=== PATIENT | male | born 1990 | race Caucasian/White ===

== ENCOUNTER 2018-10-18 01:41 | Emergency (ER) | payer OTHER ==
--- NOTE | 2018-10-18 01:49 | ED Physician Documentation ---
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 He says he felt something into left eye when he rubbed his hand over his eyebrow area. He washed out his eye, but still has feeling of FB under the upper lid and eye irritation when he moves his eye around or blinks.) Timing - duration: Hours Timing - details: Abrupt onset, Still present Location: Left Quality / character: Aching Associated symptoms: Tearing, FB sensation. No: Redness, Swelling, Decreased vision Contributing factors: FB Similar symptoms before: Has not had sx before Recently seen: Not recently seen Review of Systems Constitutional: denies: Fever Eyes: reports: Irritation. denies: Loss of vision, Decreased vision, Photophobia, Discharge PD PAST MEDICAL HISTORY - Past Medical History HEENT: None - Present Medications Home Medications: Ambulatory Orders Medication Instructions Recorded Confirmed Sertraline [Zoloft] 1 tab PO DAILY 10/18/18 10/18/18 - Allergies Allergies/Adverse Reactions: Allergies Allergy/AdvReac Type Severity Reaction Status Date / Time Penicillins Allergy Hives Verified 10/18/18 02:03 PD ED PE NORMAL - Vitals Vital signs reviewed: Yes - General General: Alert and oriented X 3, No acute distress, Well developed/nourished - HEENT HEENT: PERRL, EOMI PD ED PE EXPANDED - Eyes Eyes: PERRL (he feels better with numbing drops.), Injected conj/sclera (mild redness left eye), Conj/sclera FB (under upper lid to lateral aspect, removed speck of metal with qtip sweep. ), Anterior chambers clear. No: Exudate, Corneal abrasion, Fluorescein uptake Results - Vitals Vitals: Vital Signs - 24 hr 10/18/18 10/18/18 02:00 02:25 Temperature 37.0 C Heart Rate 79 78 Respiratory 15 16 Rate Blood Pressure 146/98 H 148/86 H O2 Saturation 99 98 Oxygen O2 Source Room air Departure - Departure Disposition: 01 Home, Self Care Clinical Impression: Acute foreign body of left conjunctiva Qualifiers: Encounter type: initial encounter Qualified Code(s): T15.12XA - Foreign body in conjunctival sac, left eye, initial encounter Condition: Stable Record reviewed to determine appropriate education?: Yes Instructions: ED Eye Particle Conjunctiva FB Rslv Comments: There is a little bit of redness on the underside of the eyelids will feel little bit irritated into tomorrow but should be resolved by later tomorrow. Tylenol or ibuprofen as needed for pains. There was a little speck of metal under the eyelid and then a was able to sweep that out. I do not see any other foreign body still. Recheck if not fully improved and by tomorrow afternoon. Discharge Date/Time: 10/18/18 02:30
[2018-10-18] MEDS ORDERED: PROPARACAINE 0.5% OPHTH DROPS 15 ML EACHEYE STA (02:06)
[2018-10-18 02:31] VITALS: BP 148/86
== END 2018-10-18 02:30 | disposition home or self-care (01) ==
LOC: ED 01:41
DX: T15.12XA Foreign body in conjunctival sac, left eye, initial encounter (principal); X58.XXXA Exposure to other specified factors, initial encounter; Y93.89 Activity, other specified; Y92.009 Unspecified place in unspecified non-institutional (private) residence as the place of occurrence of the external cause
CPT/HCPCS: 99281; 99283; J3490

== ENCOUNTER 2019-01-05 23:11 | Emergency (ER) | payer OTHER ==
--- NOTE | 2019-01-06 00:02 | ED Physician Documentation ---
PD HPI HEENT - Stated complaint Stated Complaint: BODY ACHES - Chief complaint Chief Complaint: Heent - History obtained from History obtained from: Patient - History of Present Illness Timing - onset: How many days ago (3) Timing - duration: Days (3) Timing - details: Gradual onset, Constant, Waxing and waning Pain level now: 6 Location: Throat Improves: Nothing Worsens: Swalllowing Associated symptoms: Congestion. No: Fever, Headache, Cough Similar symptoms before: Has not had sx before Recently seen: Not recently seen Review of Systems Constitutional: denies: Fever Ears: denies: Ear pain Nose: reports: Congestion Throat: reports: Sore throat Respiratory: denies: Cough PD PAST MEDICAL HISTORY - Past Medical History HEENT: None Psych: Other - Past Surgical History Past Surgical History: No - Present Medications Home Medications: Ambulatory Orders Medication Instructions Recorded Confirmed Sertraline [Zoloft] 1 tab PO DAILY 10/18/18 10/18/18 Hydrocodone/Acetaminophen 1 - 2 each PO Q6H PRN #14 tablet 01/06/19 [Hydrocodon-Acetaminophen 5-325] - Allergies Allergies/Adverse Reactions: Allergies Allergy/AdvReac Type Severity Reaction Status Date / Time Penicillins Allergy Hives Verified 01/05/19 23:23 - Social History Does the pt smoke?: Yes Smoking Status: Current every day smoker Does the pt drink ETOH?: No Does the pt have substance abuse?: No - Immunizations Immunizations are current?: Yes - POLST Patient has POLST: No PD ED PE NORMAL - Vitals Vital signs reviewed: Yes - General General: Alert and oriented X 3, No acute distress, Well developed/nourished - HEENT HEENT: Moist mucous membranes - Neck Neck: Supple, no meningeal sign PD ED PE EXPANDED - HEENT HEENT: Pharyngeal erythema, Swollen tonsils, Tonsillar exudate (predominantly right-sided) Results - Vitals Vitals: Vital Signs - 24 hr 01/05/19 01/06/19 23:21 01:13 Temperature 36.7 C 36.5 C Heart Rate 69 70 Respiratory 12 17 Rate Blood Pressure 131/78 H 132/89 H O2 Saturation 99 96 Oxygen O2 Source Room air - Labs Labs: Laboratory Tests 01/06/19 00:20 Group A Strep Rapid Negative PD MEDICAL DECISION MAKING - ED course Complexity details: reviewed results, re-evaluated patient, considered differential, d/w patient Departure - Departure Disposition: 01 Home, Self Care Clinical Impression: Pharyngitis Condition: Good Instructions: ED Pharyngitis Viral Report Pending Follow-Up: Yunier Christianson MD [Primary Care Provider] - Prescriptions: Hydrocodone/Acetaminophen [Hydrocodon-Acetaminophen 5-325] 1 - 2 each PO Q6H PRN #14 tablet PRN Reason: pain Discharge Date/Time: 01/06/19 01:14
[2019-01-06] MEDS ORDERED: CHERRY SYRUP 10 ML UDC PO ONE (00:16)
[2019-01-06] MEDS ORDERED: DEXAMETHASONE 10 MG/ML VIAL PO STA (00:16)
[2019-01-06] MEDS ORDERED: HYDROcod/ACET 5/325 Prepack 4 PO STA (00:16)
[2019-01-06 01:13] VITALS: BP 132/89
== END 2019-01-06 01:14 | disposition home or self-care (01) ==
LOC: ED 23:11
DX: J02.9 Acute pharyngitis, unspecified (principal); F17.200 Nicotine dependence, unspecified, uncomplicated
CPT/HCPCS: 87070; 87430; 99283; A9270

== ENCOUNTER 2021-01-02 12:18 | Emergency (ER) | payer OTHER ==
--- NOTE | 2021-01-02 14:19 | ED Physician Documentation ---
History of Present Illness - Stated complaint Stated Complaint: CAN'T CLOSE JAW - Chief complaint Chief Complaint: Heent - History obtained from History obtained from: Patient - Additonal information Additional information: Patient comes emergency department chief complaint of right mandibular pain that began yesterday evening. He states that he was working on something and off for an clenches his teeth while concentrating. He states that when he went to move his mandible he suddenly felt a pain on the right side and as though he could not close his mouth all the way. He states that he could get his central teeth to touch but that he could not make contact with his molars. He states he also feels as though his jaw is shifted slightly to the left. Patient denies any other complaints at this time. He has no history of injury to his mandible. No history of mandibular dislocation. The patient is able to close his mouth most of the way but just does not feel that his teeth touch in the same way that they usually do. Review of Systems Ten Systems: 10 systems reviewed and negative Constitutional: reports: Reviewed and negative Eyes: reports: Reviewed and negative Ears: reports: Reviewed and negative Nose: reports: Reviewed and negative Throat: reports: Reviewed and negative Cardiac: reports: Reviewed and negative Respiratory: reports: Reviewed and negative GI: reports: Reviewed and negative : reports: Reviewed and negative Skin: reports: Reviewed and negative Musculoskeletal: reports: Reviewed and negative Neurologic: reports: Reviewed and negative Psychiatric: reports: Reviewed and negative Endocrine: reports: Reviewed and negative Immunocompromised: reports: Reviewed and negative PD PAST MEDICAL HISTORY - Past Medical History HEENT: None Psych: Other - Past Surgical History Past Surgical History: No - Present Medications Home Medications: Ambulatory Orders Medication Instructions Recorded Confirmed Sertraline [Zoloft] 1 tab PO DAILY 10/18/18 10/18/18 Hydrocodone/Acetaminophen 1 - 2 each PO Q6H PRN #14 tablet 01/06/19 [Hydrocodon-Acetaminophen 5-325] - Allergies Allergies/Adverse Reactions: Allergies Allergy/AdvReac Type Severity Reaction Status Date / Time No Known Drug Allergies Allergy Verified 01/02/21 14:12 - Social History Does the pt smoke?: Yes Smoking Status: Current every day smoker Does the pt drink ETOH?: No Does the pt have substance abuse?: No - Immunizations Immunizations are current?: Yes - POLST Patient has POLST: No PD ED PE NORMAL - Vitals Vital signs reviewed: Yes - General General: Alert and oriented X 3, No acute distress, Well developed/nourished - HEENT HEENT: Atraumatic, PERRL, EOMI, Moist mucous membranes, Dentition benign (Good alignment with closure of mandible. No intraoral edema. No dental tenderness. No clicking/popping of TMJ.), Other (Mildly decreased range of motion of the mandible with attempt to fully open. Dental alignment appears symmetrical. Patient speaking without difficulty. TMJs are symmetrical bilaterally and mandible appears in proper placement, relative to temporal bone) - Neck Neck: Supple, no meningeal sign, No bony TTP, No adenopathy - Respiratory Respiratory: No respiratory distress - Derm Derm: Warm and dry - Extremities Extremities: No deformity - Neuro Neuro: Alert and oriented X 3 - Psych Psych: Normal mood, Normal affect Results - Vitals Vitals: Vital Signs - 24 hr 01/02/21 01/02/21 01/02/21 12:31 14:05 15:40 Temperature 37 C 36.7 C Heart Rate 95 86 90 Respiratory 16 14 12 Rate Blood Pressure 128/87 H 125/90 H 134/85 H O2 Saturation 100 100 100 Oxygen O2 Source Room air - Rads (name of study) X-ray mandible Radiology: Final report received, EMP read indepedently, See rad report (Negative) PD MEDICAL DECISION MAKING - ED course Complexity details: reviewed results, re-evaluated patient, considered differential, d/w patient ED course: I discussed with the patient that his symptoms and findings are not indicative of a mandibular dislocation at this time. Patient was insistent that he felt that his teeth were not touching the way that they normally do and so he was sent for x-rays of the mandible. This was negative. I discussed with the patient that at this point he may have some inflammation and edema with distortion of the soft or structures of the TMJ and surrounding area. This may account to some degree for the feeling he has of being unable to completely close his mandible and of the sense of his mandible listing to the left. There is no definitive management in the emergency department at this time. The patient already has a muscle relaxer and ibuprofen at home. I have advised him to call Dr. Snow's office first thing tomorrow morning to make an appointment for follow-up, though I suspect that this ultimately will blow over on its own. We have discussed soft diet and symptomatic management at home, as well as the symptoms of a true mandibular dislocation. Departure - Departure Disposition: 01 Home, Self Care Clinical Impression: TMJ dysfunction Condition: Stable Instructions: TMJ Help Heal, ED TMJ Syndrome Follow-Up: Mazin Godinez DDS [Provider Admit Priv/Credential] - Comments: Your x-ray looks good. Your mandible, or jaw, is properly placed on both sides. Most likely, you have some inflammation and spasm that is causing the decreased range of motion and the sense of distorted alignment. Generally, this will resolve on its own, but you may follow-up with the oral maxillofacial specialist Dr. Godinez if you continue to have symptoms for more than the next few days. Discharge Date/Time: 01/02/21 15:43
--- NOTE | 2021-01-02 15:05 | XRAY Report ---
PROCEDURE: Mandible Bilat INDICATIONS: R mandibular pn, "can't close my mouth" TECHNIQUE: 4 views of the mandible were acquired. COMPARISON: None FINDINGS: Bones: No fractures or dislocations. No suspicious bony lesions. Soft tissues: Visualized sinuses appear clear. No suspicious soft tissue densities. IMPRESSION: On these plain film images, no fractures or dislocations are seen. If there is strong clinical concern for an acute abnormality, please consider a dedicated maxillofaci al CT for further evaluation. If there is strong clinical concern for a focal TMJ abnormality or TMJ disc abnormality, then please consider a follow-up dedicated TMJ protocol MRI, performed with open and closed mouth views (assuming that there is no contraindication). Reviewed by: Sheldon Ramirez MD on 01/02/2021 2:03 PM [place] Approved by: Sheldon Ramirez MD on 01/02/2021 2:03 PM [place] Station ID: [id number]
[2021-01-02 15:40] VITALS: BP 134/85
== END 2021-01-02 15:43 | disposition home or self-care (01) ==
LOC: ED 12:18
DX: M26.601 Right temporomandibular joint disorder, unspecified (principal); F17.200 Nicotine dependence, unspecified, uncomplicated
CPT/HCPCS: 99282; 99283

== ENCOUNTER 2021-11-21 15:35 | Outpatient (CLI) | payer OTHER | END 2021-11-21 15:36 | disposition critical access hospital (66) | LOC: EMS 15:35 | DX: S50.311A Abrasion of right elbow, initial encounter (principal); S90.512A Abrasion, left ankle, initial encounter; M25.531 Pain in right wrist; M54.2 Cervicalgia; R51.9 Headache, unspecified; V29.40XA Motorcycle driver injured in collision with unspecified motor vehicles in traffic accident, initial encounter; Y92.414 Local residential or business street as the place of occurrence of the external cause | CPT/HCPCS: A0425; A0429 ==

== ENCOUNTER 2021-11-21 15:58 | Emergency (ER) | payer OTHER ==
[2021-11-21] MEDS ORDERED: HYDROcod/ACETAM 5/325 MG TABLET PO STA (16:05)
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
[2021-11-21 17:03] VITALS: BP 138/106
== END 2021-11-21 17:06 | disposition home or self-care (01) ==
LOC: EDUNIT# → ED 15:58
DX: S62.021A Displaced fracture of middle third of navicular [scaphoid] bone of right wrist, initial encounter for closed fracture (principal); S09.90XA Unspecified injury of head, initial encounter; S90.32XA Contusion of left foot, initial encounter; F17.200 Nicotine dependence, unspecified, uncomplicated; V29.9XXA Motorcycle rider (driver) (passenger) injured in unspecified traffic accident, initial encounter
CPT/HCPCS: 29125; 70450; 72125; 73110; 73630; 99284; A9270

== ENCOUNTER 2021-11-28 08:00 | Outpatient (CLI) | payer OTHER ==
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
== END 2021-11-28 23:59 | disposition home or self-care (01) ==
LOC: DI.WOS 08:00
PROVIDERS: ATTEND Physician Assistant
DX: S62.001A Unspecified fracture of navicular [scaphoid] bone of right wrist, initial encounter for closed fracture (principal)